=== PATIENT | female | born 1970 | race Caucasian/White ===

== ENCOUNTER 2018-08-24 23:47 | Emergency (ER) | payer OTHER ==
[~2018-08-24] VITALS: Ht 152.4 cm; Wt 74.8 kg
[2018-08-25 00:41] VITALS: BP 155/94
== END 2018-08-25 03:25 | disposition left against medical advice (07) ==
LOC: ER 23:47
DX: R04.0 Epistaxis (principal); Z53.21 Procedure and treatment not carried out due to patient leaving prior to being seen by health care provider